=== PATIENT | female | born 1980 | race Caucasian/White ===

== ENCOUNTER 2017-03-18 17:05 | Emergency (ER) | payer BC ==
[2017-03-18 17:23] VITALS: BP 125/77
--- NOTE | 2017-03-18 18:14 | UC ---
Hand/Wrist HPI - HPI Summary HPI Summary: 36 yo female s/p jamming injury to RRF yesterday - History Of Current Complaint Chief Complaint: UCUpperExtremity Stated Complaint: RIGHT RING FINGER INJURY Time Seen by Provider: 03/18/17 17:26 Hx Obtained From: Patient Hx Last Menstrual Period: 03/12/17 Onset/Duration: Sudden Onset, Lasting Days Severity Initially: Moderate Severity Currently: Mild Pain Intensity: 4 Pain Scale Used: 0-10 Numeric Character Of Pain: Dull, Aching Aggravating Factor(s): Movement Alleviating: Rest Associated Signs And Symptoms: Positive: Swelling Related History: Dominant Hand Right - Allergies/Home Medications Allergies/Adverse Reactions: Allergies Allergy/AdvReac Type Severity Reaction Status Date / Time Latex Allergy Intermediate Rash Verified 03/18/17 17:23 Tetracyclines & Related Allergy Intermediate alterd Verified 03/18/17 17:23 mental status PMH/Surg Hx/FS Hx/Imm Hx Previously Healthy: Yes - Surgical History Surgical History: Yes Surgery Procedure, Year, and Place: ulnar collateral ligament 1999 - Family History Known Family History: Positive: Cardiac Disease, Hypertension - Social History Alcohol Use: Occasionally Substance Use Type: None Smoking Status (MU): Never Smoked Tobacco Have You Smoked in the Last Year: No - Immunization History Most Recent Influenza Vaccination: 2016 Review of Systems Constitutional: Negative Skin: Negative Eyes: Negative ENT: Negative Respiratory: Negative Cardiovascular: Negative Gastrointestinal: Negative Genitourinary: Negative Motor: Negative Neurovascular: Negative Musculoskeletal: Arthralgia, Decreased ROM Neurological: Negative Psychological: Negative All Other Systems Reviewed And Are Negative: Yes Physical Exam Triage Information Reviewed: Yes Appearance: Well-Appearing, No Pain Distress, Well-Nourished Vital Signs: Initial Vital Signs Temp 98.7 F 03/18/17 17:16 Pulse 71 03/18/17 17:16 Resp 16 03/18/17 17:16 BP 125/77 03/18/17 17:16 Pulse Ox 100 03/18/17 17:16 Vital Signs Reviewed: Yes Eyes: Positive: Conjunctiva Clear ENT: Positive: Hearing grossly normal. Negative: Nasal congestion, Nasal drainage, Trismus, Muffled/hoarse voice Neck: Positive: Supple Respiratory: Positive: Lungs clear, Normal breath sounds, No respiratory distress, No accessory muscle use Cardiovascular: Positive: RRR, No Murmur Musculoskeletal: Positive: Other: - see image Psychological Exam: Normal Skin Exam: Normal Hand/Wrist Course/Dx - Differential Dx/Diagnosis Provider Diagnoses: right ring finger sprain Discharge - Discharge Plan Condition: Stable Disposition: HOME Patient Education Materials: Finger Sprain (ED) Referrals: John Rogers MD [Primary Care Provider] - 2 Weeks (if not better) Additional Instructions: rest elevate ice tylenol or advil if needed Images Hands: 1 - tender/swollen/decreased ROM
--- NOTE | 2017-03-18 18:38 | RAD ---
INDICATION: Right ring finger injury. TECHNIQUE: 3 views of the right ring finger were obtained. FINDINGS: The bones are normal alignment. No fracture is seen. Joint spaces appear maintained. IMPRESSION: NO EVIDENCE FOR FRACTURE.
== END 2017-03-18 18:40 | disposition home or self-care (01) ==
LOC: UCCORT 17:05
DX: S63.614A Unspecified sprain of right ring finger, initial encounter (principal); W23.0XXA Caught, crushed, jammed, or pinched between moving objects, initial encounter; Y93.9 Activity, unspecified; Y92.9 Unspecified place or not applicable; Z88.8 Allergy status to other drugs, medicaments and biological substances; Z91.040 Latex allergy status
CPT/HCPCS: 73140; 99212; G0463

== ENCOUNTER 2018-12-04 08:31 | Emergency (ER) | payer BC ==
[2018-12-04 08:50] VITALS: BP 129/87
--- NOTE | 2018-12-04 09:17 | UC ---
Back Pain HPI - HPI Summary HPI Summary: Patient presents to urgent care with pain in her right low back area that started yesterday. Patient states she ran on a treadmill yesterday with no sudden change in movement or position. Patient states during the afternoon she developed increased pain. Has sudden episodes of increasing, otherwise it feels like deep ache. No radiation. No nausea vomiting. No urinary symptoms. No vaginal discharge itching or odor. No hematuria. No abdominal pain. No nausea vomiting. No paresthesias or leg. No leg weakness. No changes to bowel or bladder. No direct trauma. No analgesia taken. Patient is physically active with no history of similar. Patient states she is unable to locate a specific spot that causes pain with palpation. Patient has not applied heat. Patient states she does not is when she stretches in certain positions increases pain. Patient states she's not . Patient's medications reviewed this visit. - History of Current Complaint Chief Complaint: UCBackPain Stated Complaint: LOWER BACK PAIN Time Seen by Provider: 12/04/18 09:08 Hx Obtained From: Patient Hx Last Menstrual Period: ~11/13/18 ?: No Onset/Duration: Sudden Onset Timing: Intermittent Severity Initially: Moderate Severity Currently: None Pain Intensity: 0 Back Pain: Is Discrete @ - right low back pain Character: Sharp - mostly deep ache with episodes of increased pain Associated Signs And Symptoms: Positive: Negative - Allergies/Home Medications Allergies/Adverse Reactions: Allergies Allergy/AdvReac Type Severity Reaction Status Date / Time latex Allergy Rash Verified 12/04/18 08:45 Tetracyclines Allergy Altered Verified 12/04/18 08:45 Mental Status Home Medications: Home Medications Allergy Shots 2 vial SUBCUT Q14D PRN 12/04/18 [History] PMH/Surg Hx/FS Hx/Imm Hx Previously Healthy: Yes - Surgical History Surgical History: Yes Surgery Procedure, Year, and Place: ulnar collateral ligament 1999 - Family History Known Family History: Positive: Cardiac Disease, Hypertension, Non-Contributory - Social History Occupation: Employed Full-time Lives: With Family Alcohol Use: Occasionally Substance Use Type: None Smoking Status (MU): Never Smoked Tobacco Have You Smoked in the Last Year: No - Immunization History Most Recent Influenza Vaccination: 2015 Review of Systems All Other Systems Reviewed And Are Negative: Yes Constitutional: Positive: Negative Skin: Positive: Negative Eyes: Positive: Negative ENT: Positive: Negative Respiratory: Positive: Negative Cardiovascular: Positive: Negative Gastrointestinal: Positive: Negative Genitourinary: Positive: Negative Motor: Positive: Other - right low back pain Musculoskeletal: Positive: Other: - right low back pain Neurological: Positive: Negative Psychological: Positive: Negative Physical Exam - Summary Physical Exam Summary: Vital Signs Reviewed: Yes A+Ox3, no distress, able to ambulate, transfer to exam table without assistance, mild discomfort Eyes: Conjunctiva Clear, YA. EOM intact and full ENT: Hearing grossly normal TM x 2 clear, mmoist, uvula midline, no exudate, no erythema Neck: Positive: Supple Respiratory: Positive: No respiratory distress, No accessory muscle use + CTA throughout no w/r Cardiovascular: RRR nl s1, s2 no m/r CBT <2 sec abd soft + BS nt/nd no guarding, no distension Musculoskeletal Exam: No pain c/t/l/s Full AROM c spine + abduction shoulder Pain in right low back (area of SI joint) increases Neurological: Positive: Alert, + sensation throughout Psychological: Positive: Normal Response To Family Skin: Positive: no rash, no ecchymosis Triage Information Reviewed: Yes Vital Signs: Initial Vital Signs Temp 98.3 F 12/04/18 08:41 Pulse 70 12/04/18 08:41 Resp 14 12/04/18 08:41 BP 129/87 12/04/18 08:41 Pulse Ox 98 12/04/18 08:41 Back Pain Course/Dx - Course Course Of Treatment: Pt presents with 24 hours discomfort in right low back area - pain deep, intermittently sharp. No paresthesia. No ext weakness. No bowel/bladder change. No analgesia taken. no h/o similar. On exam, pain reprodicuble with ROM testing. suspect sI joint pain. CSM intact. reommend heat. stretch. nsaid. steroid. sports med f.u - Differential Dx/Diagnosis Provider Diagnosis: Chronic right SI joint pain Discharge - Sign-Out/Discharge Documenting (check all that apply): Patient Departure All imaging exams completed and their final reports reviewed: No Studies - Discharge Plan Condition: Stable Disposition: HOME Prescriptions: methylPREDNISolone [Medrol Dosepak 4 MG*] 1 mg PO .SEE KIARA INSTRUCTION #1 tab Patient Education Materials: Muscle Strain (ED), Low Back Strain (ED) Referrals: Jag Kennedy [Medical Doctor] - John Rogers MD [Primary Care Provider] - Additional Instructions: As discussed, the doctor that evaluated you today thinks that your pain is related to your sacroiliac joint. The following is recommended: - Alternate ibuprofen (Advil, Motrin) 600mg and Tylenol every 3 hours for pain. Take with food. Do not take for more than 2-3 days. - Apply moist heat to your back for 20 minutes at a time. When chairback is warm, slow gentle stretching exercises are recommended - Slow purposeful short walks frequently is important to keep her muscles loose - Contact your doctor to schedule follow-up appointment. It's also recommended to follow up with physical therapy. Referrals been given today. If you have increased or uncontrolled pain, vomiting, urinary symptoms to include blood in your urine or pain with urination, vaginal discharge, abdominal pain, fevers, or any other concerns is recommended to be reevaluated. - Billing Disposition and Condition Condition: STABLE Disposition: Home
== END 2018-12-04 09:43 | disposition home or self-care (01) ==
LOC: UCCORT 08:31
DX: M53.3 Sacrococcygeal disorders, not elsewhere classified (principal); Z88.1 Allergy status to other antibiotic agents; Z91.040 Latex allergy status
CPT/HCPCS: 81003; 99212; G0463

== ENCOUNTER 2019-12-17 18:53 | Emergency (ER) | payer BC ==
[2019-12-17 19:53] VITALS: BP 125/72
--- NOTE | 2019-12-17 20:17 | UC ---
Complaint Female HPI - HPI Summary HPI Summary: 39-year-old female presents with onset of dysuria and frequency since yesterday. States she is also noted that her heart rate was slightly elevated. Reports she's had one other urinary tract infection that was severe and her only symptom at that time was an elevated heart rate. Denies fever, chills, abdominal pain, back or flank pain, urgency, hematuria, vaginal discharge, or dyspareunia. - History Of Current Complaint Chief Complaint: UCGU Stated Complaint: URINARY Hx Obtained From: Patient Hx Last Menstrual Period: 12/06/19 Pain Intensity: 0 - Allergies/Home Medications Allergies/Adverse Reactions: Allergies Allergy/AdvReac Type Severity Reaction Status Date / Time latex Allergy Rash Verified 12/04/18 08:45 Tetracyclines Allergy Altered Verified 12/04/18 08:45 Mental Status Home Medications: Home Medications Phenazopyridine TAB* [Pyridium 100 mg TAB*] 100 mg PO TID #6 tab 12/17/19 [Rx] Sulfamethox/Trimethoprim DS* [Bactrim DS 800/160 TAB*] 1 tab PO BID 5 Days #10 tab 12/17/19 [Rx] PMH/Surg Hx/FS Hx/Imm Hx Previously Healthy: Yes - Denies significant PMH - Surgical History Surgical History: Yes Surgery Procedure, Year, and Place: ulnar collateral ligament 1999 - Family History Known Family History: Positive: Cardiac Disease, Hypertension - Social History Occupation: Employed Full-time Lives: With Family Alcohol Use: Occasionally Substance Use Type: None Smoking Status (MU): Never Smoked Tobacco Have You Smoked in the Last Year: No - Immunization History Most Recent Influenza Vaccination: 2016 Review of Systems All Other Systems Reviewed And Are Negative: Yes Constitutional: Negative: Fever, Chills Respiratory: Positive: Negative Cardiovascular: Positive: Negative Gastrointestinal: Negative: Abdominal Pain, Vomiting, Diarrhea, Nausea Genitourinary: Positive: Dysuria, Frequency. Negative: Hematuria, Urgency, Vaginal/Penile Discharge Musculoskeletal: Positive: Negative Neurological/Mental Status: Positive: Negative Is Patient Immunocompromised?: No Physical Exam - Summary Physical Exam Summary: GENERAL APPEARANCE: Well developed, well nourished, alert and cooperative, and appears to be in no acute distress. CARDIAC: Normal S1 and S2. No S3, S4 or murmurs. Rhythm is regular. There is no peripheral edema, cyanosis or pallor. Extremities are warm and well perfused. Capillary refill is less than 2 seconds. Peripheral pulses intact. LUNGS: Clear to auscultation without rales, rhonchi, wheezing or diminished breath sounds. ABDOMEN: Positive bowel sounds. Soft, nondistended, nontender. No guarding or rebound. No masses or hepatosplenomegally. No CVA tenderness. MUSKULOSKELETAL: ROM intact to all extremities. No joint erythema or tenderness. Normal muscular development. Normal gait. SKIN: Skin normal color, texture and turgor with no lesions or eruptions. Triage Information Reviewed: Yes Vital Signs: Initial Vital Signs Temp 98.9 F 12/17/19 19:49 Pulse 83 12/17/19 19:49 Resp 12 12/17/19 19:49 BP 125/72 12/17/19 19:49 Pulse Ox 99 12/17/19 19:49 Vital Signs Reviewed: Yes Complaint Female Dx - Course Course Of Treatment: 39-year-old female presents with onset of dysuria and frequency since yesterday. States she is also noted that her heart rate was slightly elevated. Reports she's had one other urinary tract infection that was severe and her only symptom at that time was an elevated heart rate. Denies fever, chills, abdominal pain, back or flank pain, urgency, hematuria, vaginal discharge, or dyspareunia. Afebrile. Vital signs stable. Patient had an overall unremarkable exam. [id number] urinalysis showed 1+ leukocyte esterase and trace intact blood. Urine culture pending. Reviewed the results with the patient. Discussed that based on her symptoms and urine test we will treat her empirically for a urinary tract infection with Bactrim DS 1 tablet twice daily for 5 days and provide her with Pyridium 100 mg 3 times a day 2 days to help with the discomfort. She is to return here or follow up with her primary care provider if symptoms are not improving in 3-5 days. Anticipatory guidance and warning symptoms were reviewed with the patient. Verbalizes understanding and agrees with plan of care. - Differential Dx/Diagnosis Differential Diagnosis/HQI/PQRI: , Renal Colic, Urinary Tract Infection Provider Diagnosis: UTI (urinary tract infection) Discharge ED - Sign-Out/Discharge Documenting (check all that apply): Patient Departure All imaging exams completed and their final reports reviewed: No Studies - Discharge Plan Condition: Stable Disposition: HOME Prescriptions: Phenazopyridine TAB* [Pyridium 100 mg TAB*] 100 mg PO TID #6 tab Sulfamethox/Trimethoprim DS* [Bactrim DS 800/160 TAB*] 1 tab PO BID 5 Days #10 tab Patient Education Materials: Urinary Tract Infection in Women (ED) Referrals: John Rogers MD [Primary Care Provider] - 3 Days Additional Instructions: Your urine test in the clinic today is suggestive of a urinary tract infection. We will start you on an antibiotic to treat for the infection. We will also send a urine culture today to see what bacteria grow out and make sure the antibiotic you were prescribed is appropriate to treat the infection. It will take 48-72 hours to get these results. We will contact you if there is any change in your treatment plan. Start Bactrim DS 1 tablet twice a day for 5 days. Take Pyridium 1 tablet every 8 hours for next 2 days to help with the discomfort. This medication will turn your urine an orange color. Drink plenty of fluids. To help prevent urinary tract infections: 1) Be sure to wipe from front to back. 2) Urinate immediately after any sexual intercourse. 3) Avoid taking bubble baths. Follow up with your primary care provider in 3-5 days if symptoms persist. Seek immediate medical attention in the emergency room if you develop fever greater than 100.5 F, have severe abdominal pain, persistent vomiting, or any worsening of symptoms. - Billing Disposition and Condition Condition: STABLE Disposition: Home
--- NOTE | 2019-12-20 07:14 | UC ---
- Progress Note Progress Note: Please notify patient NO UTI STOP antibiotic See PCP if still symptomatic JLD Course/Dx - Diagnoses Provider Diagnoses: UTI (urinary tract infection) Discharge ED - Sign-Out/Discharge Documenting (check all that apply): Post-Discharge Follow Up All imaging exams completed and their final reports reviewed: No Studies - Discharge Plan Condition: Stable Disposition: HOME Prescriptions: Phenazopyridine TAB* [Pyridium 100 mg TAB*] 100 mg PO TID #6 tab Sulfamethox/Trimethoprim DS* [Bactrim DS 800/160 TAB*] 1 tab PO BID 5 Days #10 tab Patient Education Materials: Urinary Tract Infection in Women (ED) Referrals: John Rogers MD [Primary Care Provider] - 3 Days Additional Instructions: Your urine test in the clinic today is suggestive of a urinary tract infection. We will start you on an antibiotic to treat for the infection. We will also send a urine culture today to see what bacteria grow out and make sure the antibiotic you were prescribed is appropriate to treat the infection. It will take 48-72 hours to get these results. We will contact you if there is any change in your treatment plan. Start Bactrim DS 1 tablet twice a day for 5 days. Take Pyridium 1 tablet every 8 hours for next 2 days to help with the discomfort. This medication will turn your urine an orange color. Drink plenty of fluids. To help prevent urinary tract infections: 1) Be sure to wipe from front to back. 2) Urinate immediately after any sexual intercourse. 3) Avoid taking bubble baths. Follow up with your primary care provider in 3-5 days if symptoms persist. Seek immediate medical attention in the emergency room if you develop fever greater than 100.5 F, have severe abdominal pain, persistent vomiting, or any worsening of symptoms. - Billing Disposition and Condition Condition: STABLE Disposition: Home
== END 2019-12-17 20:27 | disposition home or self-care (01) ==
LOC: UCCORT 18:53
DX: N39.0 Urinary tract infection, site not specified (principal); Z91.040 Latex allergy status; Z88.1 Allergy status to other antibiotic agents
CPT/HCPCS: 81003; 87086; 99212; G0463